=== PATIENT | female | born 1970 | race Caucasian/White ===

== ENCOUNTER 2016-07-12 11:07 | Emergency (ER) | payer OTHER ==
[~2016-07-12] VITALS: Ht 167.6 cm; Wt 112.5 kg
[2016-07-12 11:14] VITALS: BP 125/64
[2016-07-12] MEDS ORDERED: NOVOLOG MI100 UNIT/2 SC (11:31)
[2016-07-12] MEDS ORDERED: METFORMIN HCL500 M3 PO (11:31)
--- NOTE | 2016-07-12 11:41 | ED MVC/FALL/TRAUMA COMPLAINT ---
History of Present Illness General Chief Complaint: Lower Extremity Injury Stated Complaint: RT KNEE PAIN S/P FALL Source: patient, old records Exam Limitations: no limitations Vital Signs & Intake/Output Vital Signs & Intake/Output Vital Signs Date Time Temp Pulse Resp B/P Pulse O2 O2 Flow FiO2 Ox Delivery Rate 07/12 1114 97.5 90 20 125/64 99 Room Air Allergies Coded Allergies: No Known Allergies (07/12/16) Reconcile Medications Insulin Aspart Protam & Aspart (Novolog Mix 70-30 Flexpen Syrn) 100 UNIT/ML (70- 30) INSULN.PEN 60 U SC BID DIABETES (Reported) Metformin HCl 500 MG TABLET 2 TAB PO BID DIABETES (Reported) Triage Note: PT STATES SHE FELL DOWN 8 STAIRS YESTERDAY WHEN HER HEAL GOT CAUGHT IN HER SWEATER. C/O RIGHT KNEE PAIN, DENIES LOC. Triage Nurses Notes Reviewed? yes Onset: Abrupt Duration: day(s): (2), constant Timing: recent history Severity: moderate Severity Numbers: 5 Injuries/Fall Location: lower extremity Method of Injury: fall Loss of Consciousness: no loss of consciousness Modifying Factors: Worsens With: movement. Associated Symptoms: denies : No Patient currently breastfeeds: No HPI: 46-year-old female with history of diabetes presents after she had a mechanical trip and fall down a flight of stairs yesterday morning prior to work injuring her right knee. She denies hitting her head and there is no loss of consciousness. The patient states that she went to both of her jobs yesterday and states she was limping however felt the pain by taking Tylenol. She denies any neck back upper extremity or left leg pain she denies any right hip foot or ankle pain and states the pain is localized to the knee worse with palpation and range of motion. She states that it appears swollen to her. She took Tylenol this morning is declining anything else for pain. There is no prodromal dizziness lightheadedness prior to her fall (JENIFFER OBREGON) Past History Travel History Traveled to [place] past 21 day No Medical History Any Pertinent Medical History? see below for history Endocrine: diabetes Surgical History Surgical History: non-contributory Psychosocial History What is your primary language Setswana Tobacco Use: Quit >30 days ago ETOH Use: denies use Illicit Drug Use: denies illicit drug use Family History Hx Contributory? No (JENIFFER OBREGON) Review of Systems Review of Systems Constitutional: Reports: see HPI. All Other Systems: Reviewed and Negative Comments Review of systems: See HPI, All other systems negative. Constitutional, no chills no fever, no malaise HEENT: No visual changes no sore throat no congestion, no ear pain Cardiovascular: No chest pain , no palpitation Skin, no rashes, no change in skin Respiratory: No dyspnea no cough no sputum GI: No nausea no vomiting, no diarrhea : No dysuria Muscle skeletal: joint pain, no joint swelling, no back pain, no neck pain, Neurologic: No numbness no confusion, no headache Psych: No stress Heme/endocrine: No bruising no bleeding Immunology: No lymphadenopathy (JENIFFER OBREGON) Physical Exam Physical Exam General Appearance: well developed/nourished, no apparent distress, alert, awake Comments: Well-developed well-nourished patient in no apparent distress. HEENT: Atraumatic, extraocular motion intact Neck: Supple, FROM Back: FROM, Nontender Cardiovascular: Regular rate and rhythms no murmurs Respiratory: No respiratory distress. Patient speaking in full complete sentences. Breath sounds clear to auscultation bilaterally: NO W/R/R Upper Extremities: Atraumatic, full range of motion Hip/Pelvis: Atraumatic/Stable. FROM. No pain with pelvic compression Knee: Superficial abrasion noted to the right anterior Kumar, the knee is atraumatic, stable. FROM. No joint swelling, no effusion. No laxity. Negative marina/anterior drawer test. Pain is reproducible with range of motion of the right knee Leg: Atraumatic. Nontender. No edema, 5 out of 5 strength in the lower extremity, normal dorsiflexion of great toe bilaterally, gross sensation is intact, patellar tendon reflex 2+ bilaterally. Ankle/Foot: Atraumatic/stable. Skin intact. FROM. No swelling, no effusion. No laxity on exam Pulses: Normal/equal DP/PT pulses bilaterally. Brisk cap refill Neuro: Alert and oriented x3 Skin: Warm & dry;No appreciable rash on exposed skin Psych: Mood affect normal, normal memory normal judgment. Core Measures ACS in differential dx? No Severe Sepsis Present: No Septic Shock Present: No (JENIFFER OBREGON) Progress Differential Diagnosis: C/T/L spine injury, ext injury, ICH, pelvis injury, spinal cord injury Plan of Care: Orders Procedure Date/time Status Durable Medical Equipment 07/12 1244 Active Patient is declining anything for pain when offered x-rays ordered patient was ambulatory to room On repeat evaluation patient is declining anything for pain. Discussed with her her x-ray results. Patient states she has a brace at home declining leg immobilizer crutches were provided. I discussed with the patient at length all of their results, need for close follow up with their primary care physician this week as well as orthopedist. I answered all of their questions, discharge instructions were given and discussed with the patient. They were given instructions as to when to return.They feel comfortable with the plan. (JENIFFER OBREGON) Diagnostic Imaging: Viewed by Me: Radiology Read. Discussed w/RAD: Radiology Read. Radiology Impression: PATIENT: CHAD FOSTER PRESENT AGE: 46 PATIENT ACCOUNT NO: [id number] : 71 LOCATION: [facility] ORDERING PHYSICIAN: JENIFFER DUNHAM SERVICE DATE: 07/12/16 EXAM TYPE: RAD - XRY- KNEE COMPLETE RIGHT EXAMINATION: XR KNEE, RIGHT CLINICAL INFORMATION: Pain after fall. COMPARISON: None. TECHNIQUE: Right knee, 4 views FINDINGS: Bones have normal alignment. No acute fracture, subluxation or joint effusion. These nonweightbearing radiographs show minimal narrowing of the medial tibiofemoral joint space. There is tricompartmental osteophyte formation of the degenerated knee. A 0.7 cm intra-articular ossific body is present within the posterior knee. IMPRESSION: 1. No acute fracture or malalignment at the right knee. 2. Mild tricompartmental osteoarthritis. A 0.7 cm intra-articular ossific body is present within the posterior knee. DICTATED BY: CHRISTIAN GORDON MD DATE/TIME DICTATED:07/12/161226 DIRECTOR OF SALES AND MARKETING:FAISAL DATE/TIME TRANSCRIBED:1226 CONFIDENTIAL, DO NOT COPY WITHOUT APPROPRIATE AUTHORIZATION. < Electronically signed in Other Vendor System> SIGNED BY: CHRISTIAN GORDON MD 07/12/16 1231 (JENIFFER OBREGON) Departure Departure Disposition: HOME OR SELF CARE Condition: Stable Clinical Impression Primary Impression: Knee sprain Referrals: SHAINA BARRETT MD (PCP/Family) Additional Instructions: Rest, ice, Tylenol or Motrin every 4-6 hours as needed for pain. Use your brace that you have at home. Follow-up with your primary care physician this week if symptoms persist. Keep leg elevated, return anytime sooner with any concerns Departure Forms: Customer Survey General Discharge Information (ANNE-MARIE DUNHAM,JENIFFER) PA/SHAKER WASHER Co-Sign Statement Statement: ED Attending supervision documentation- [] I saw and evaluated the patient. I have also reviewed all the pertinent lab results and diagnostic results. I agree with the findings and the plan of care as documented in the PA's/SHAKER WASHER's documentation. [X] I have reviewed the ED Record and agree with the PA's/SHAKER WASHER's documentation. [] Additions or exceptions (if any) to the PAs/SHAKER WASHER's note and plan are summarized below: [] (JANAE WRIGHT,RAKEL)
--- NOTE | 2016-07-12 12:33 | RADIOLOGY REPORT ---
EXAMINATION: XR KNEE, RIGHT CLINICAL INFORMATION: Pain after fall. COMPARISON: None. TECHNIQUE: Right knee, 4 views FINDINGS: Bones have normal alignment. No acute fracture, subluxation or joint effusion. These nonweightbearing radiographs show minimal narrowing of the medial tibiofemoral joint space. There is tricompartmental osteophyte formation of the degenerated knee. A 0.7 cm intra-articular ossific body is present within the posterior knee. IMPRESSION: 1. No acute fracture or malalignment at the right knee. 2. Mild tricompartmental osteoarthritis. A 0.7 cm intra-articular ossific body is present within the posterior knee.
== END 2016-07-12 12:42 ==
LOC: ERH 11:07
DX: S83.91XA Sprain of unspecified site of right knee, initial encounter (principal); W10.9XXA Fall (on) (from) unspecified stairs and steps, initial encounter
CPT/HCPCS: 73562-RT